=== PATIENT | female | born 1980 | race Caucasian/White ===

== ENCOUNTER 2016-07-18 10:23 | Emergency (ER) | payer OTHER ==
[2016-07-18 11:40] LABS: SPECIFIC GRAVITY 1.025 (1.001-1.030); URINE BILIRUBIN NEGATIVE (NEGATIVE); URINE BLOOD 2+ (NEGATIVE); URINE GLUCOSE (UA) NEGATIVE (NEGATIVE); URINE LEUKOCYTE ESTERASE TRACE (NEGATIVE); URINE NITRITE NEGATIVE (NEGATIVE); URINE PROTEIN TRACE (NEGATIVE); URINE UROBILINOGEN 1 mg/dL (0-1 mg/dl)
[2016-07-18 11:42] LABS: HCG,QUALITATIVE URINE NEGATIVE
[2016-07-18 11:44] LABS: URINE APPEARANCE HAZY; URINE COLOR AMBER
[2016-07-18 12:11] LABS: URINE BACTERIA 1+; URINE EPITHELIAL CELLS MODERATE /hpf; URINE MUCUS 3+
[2016-07-18] MEDS ORDERED: IBUPROFEN 600 MG TABLET ONE (12:27)
[2016-07-18] MEDS ORDERED: DIAZEPAM 5 MG TABLET ONE (12:28)
[2016-07-18] MEDS ORDERED: ACETAMINOPHEN 325 MG TABLET ONE (12:28)
== END 2016-07-18 12:46 | disposition home or self-care (01) ==
LOC: ED 10:23
DX: M54.41 Lumbago with sciatica, right side (principal); F17.210 Nicotine dependence, cigarettes, uncomplicated
CPT/HCPCS: 81025; 81001; 99283 ×2; 51798; A9270 ×3

== ENCOUNTER 2016-08-14 11:17 | Emergency (ER) | payer OTHER ==
[2016-08-14 11:51] LABS: SPECIFIC GRAVITY 1.025 (1.001-1.030); URINE BILIRUBIN NEGATIVE (NEGATIVE); URINE BLOOD TRACE (NEGATIVE); URINE GLUCOSE (UA) NEGATIVE (NEGATIVE); URINE LEUKOCYTE ESTERASE NEGATIVE (NEGATIVE); URINE NITRITE NEGATIVE (NEGATIVE); URINE PROTEIN NEGATIVE (NEGATIVE); URINE UROBILINOGEN NORMAL (0-1 mg/dl)
[2016-08-14 11:53] LABS: URINE APPEARANCE CLEAR; URINE COLOR YELLOW
[2016-08-14 11:54] LABS: HCG,QUALITATIVE URINE NEGATIVE
[2016-08-14] MEDS ORDERED: ONDANSETRON 4 MG/2ML 2 ML VIAL ONE (12:33)
[2016-08-14] MEDS ORDERED: SODIUM CHLORIDE 0.9% 1,000 ML ONE (12:33)
[2016-08-14] MEDS ORDERED: KETOROLAC TROMETHAMINE 30 MG/ML 1 ML VIAL ONE (12:34)
[2016-08-14 12:51] LABS: ABSOLUTE NEUTROPHIL COUNT 8.4 K/mm3 (1.8-7.7); BASO # 0.1 K/mm3 (0.0-0.2); BASO % 0.7 % (0.2-1.0); EOS # 0.1 (0.0-0.5); EOS % 0.8 % (0.9-2.9); HEMATOCRIT 40.8 % (37.0-47.0); HEMOGLOBIN 12.9 gm/l (12.0-16.0); IMM NEUT # 0.1 K/mm3 (0-0.2); IMM NEUT% 0.8 % (0-1); LYMPH # 1.9 (1.0-4.8); LYMPH % 17.2 % (15-45); MEAN CELL VOLUME 85.7 fl (81.0-99.0); MEAN CORPUSCULAR HEMOGLOBIN 27.1 pg (27.0-31.0); MEAN CORPUSCULAR HGB CONC 31.6 g/dl (33.0-37.0); MEAN PLATELET VOLUME 10.1 fl (7.4-10.4); MONO # 0.5 (0.0-0.8); MONO % 4.8 % (4-12); NEUT % 75.7 % (43-75); PLATELET COUNT 369 K/mm3 (130-400); RED CELL DISTRIBUTION WIDTH 14.6 % (11.5-14.5)
[2016-08-14 13:10] LABS: ALB/GLOB RATIO 1.3 (>1.0); ALBUMIN 3.9 gm/dL (3.5-5.7)
--- NOTE | 2016-08-14 13:35 | US ---
ABDOMINAL-LIMITED: 08/14/2016 12:22 PM CLINICAL HISTORY: Right upper quadrant pain for one day.. STUDY: Limited right upper quadrant ultrasound COMPARISON: 09/13/[address] abdomen and pelvis 11/17/2014. FINDINGS: Gallbladder: Wall thickness: Normal Cholelithiasis: none Pericholecystic Fluid: none Sonographic Bernstein's Sign: Equivocal, as patient is on pain medication. Bile ducts: Common bile duct measures 2 to 3 mm. Limited visualized Liver and RUQ structures: normal IMPRESSION: No sonographic findings of acute cholecystitis or cholelithiasis. Follow-up as clinically warranted. Report was uploaded to the electronic medical record at approximately 1332 hours on 08/14/2016.
== END 2016-08-14 13:49 | disposition home or self-care (01) ==
LOC: ED 11:17
DX: R10.11 Right upper quadrant pain (principal); R11.2 Nausea with vomiting, unspecified; R19.7 Diarrhea, unspecified
CPT/HCPCS: 83690; 81025; 85025; 80053; 81003; 76705; 96375; 99284 ×2; 96374; 96361; J1885; J2405; J7030

== ENCOUNTER 2016-08-17 13:04 | Emergency (ER) | payer OTHER ==
[2016-08-17] MEDS ORDERED: HYDROCODONE/ACETAMINOPHEN 5/325MG TABLET ONE (13:39)
== END 2016-08-17 13:49 | disposition home or self-care (01) ==
LOC: ED 13:04
DX: R10.11 Right upper quadrant pain (principal); M79.7 Fibromyalgia; I10 Essential (primary) hypertension; F90.9 Attention-deficit hyperactivity disorder, unspecified type; G25.81 Restless legs syndrome; F17.210 Nicotine dependence, cigarettes, uncomplicated; F41.9 Anxiety disorder, unspecified; F32.9 Major depressive disorder, single episode, unspecified; Z79.899 Other long term (current) drug therapy; Z88.1 Allergy status to other antibiotic agents; Z88.2 Allergy status to sulfonamides
CPT/HCPCS: 99283 ×2; A9270